=== PATIENT | male | born 1975 | race Caucasian/White ===

== ENCOUNTER 2020-08-21 16:30 | Inpatient (IN) | payer OTHER ==
[2020-08-21] MEDS ORDERED: ACETAMINOPHEN 325 MG TABLET (FP) PO PRN ×2 (22:05)
[2020-08-21] MEDS ORDERED: MENTHOL/PHENOL 1 EACH UD MM PRN (22:05)
[2020-08-21] MEDS ORDERED: IBUPROFEN 400 MG TABLET (FP) PO PRN (22:05)
[2020-08-21] MEDS ORDERED: BISMUTH SUBSALICYLATE 524 MG/30 ML UD PO PRN (22:05)
[2020-08-21] MEDS ORDERED: MAG HYDROX/AL HYDROX/SIMETH 30 ML UNIT-DOSE CUP PO PRN (22:05)
[2020-08-21] MEDS ORDERED: METHOCARBAMOL 500 MG TABLET PO PRN (22:05)
[2020-08-21] MEDS ORDERED: NICOTINE POLACRILEX 2 MG GUM BUC PRN (22:05)
[2020-08-21] MEDS ORDERED: MAGNESIUM CITRATE 300 ML BOTTLE PO PRN (22:05)
[2020-08-21] MEDS ORDERED: MAGNESIUM HYDROX 2400MG/30ML ORAL SUSPENSION 30 ML CUP PO PRN (22:05)
[2020-08-21] MEDS ORDERED: LORazepam 1 MG TABLET PO PRN (22:05)
[2020-08-21] MEDS ORDERED: ONDANSETRON *ODT* 4 MG TABLET SL PRN (22:05)
--- NOTE | 2020-08-21 22:05 | BHS.RME ---
Substance Use & Tx History - Substance Use History Alcohol Substance amount: 6 beers Frequency of use: Daily Substance route: Oral Date of Last Use: 08/21/20 - Last Treatment Date of last treatment: 10 months ago Where was last treatment: Detox ([facility]) Physical/Psych/Mental Status - Behavior General Behavior: Increased activity (restlessness, agitation) Other Behaviors: Posturing - Cooperativeness Cooperativeness: Cooperative - Thinking Thought Processes: Tight - Physical Health Problems Is patient presently having any pain?: No Does patient presently have any injuries (include location): No Does patient currently have a fever: No Is patient : No CIWA Nausea/Vomitin-No Nausea/No Vomiting Muscle Tremors: 3 Anxiety: 3 Agitation: 2 Paroxysmal Sweats: 2 Orientation: 0-Oriented Tacttile Disturbances: 0-None Auditory Disturbances: 0-None Visual Disturbances: 0-None Headache: 2-Mild CIWA-Ar Total Score: 12
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
[2020-08-21 22:31] VITALS: BMI 35.2
--- OUTSIDE RECORDS SUMMARY | 2020-08-21 23:53 | XMS ---
:1975 Author Organization [facility] Support Name Relationship Address Phone UE Unavailable Unavailable Unavailable BERTRAND [employer]ILSON MOTHER [address] [place] [address] Re-disclosure Warning The records that you are about to access may contain information from federally- assisted alcohol or drug abuse programs. If such information is present, then the following federally mandated warning applies: This information has been disclosed to you from records protected by federal confidentiality rules (42 CFR part 2). The federal rules prohibit you from making any further disclosure of this information unless further disclosure is expressly permitted by the written consent of the person to whom it pertains or as otherwise permitted by 42 CFR part 2. A general authorization for the release of medical or other information is NOT sufficient for this purpose. The Federal rules restrict any use of the information to criminally investigate or prosecute any alcohol or drug abuse patient.The records that you are about to access may contain highly sensitive health information, the redisclosure of which is protected by Article 27-F of the [facility] Public Health law. If you continue you may haveaccess to information: Regarding HIV / AIDS; Provided by facilities licensed or operated by the [facility] Office of Mental Health; or Provided by the [facility] Office for People With Developmental Disabilities. If such information is present, then the following [facility] mandated warning applies: This information has been disclosed to you from confidential records which are protected by state law. State law prohibits you from making any further disclosure of this information without the specific written consent of the person to whom it pertains, or as otherwise permitted by law. Any unauthorized further disclosure in violation of state law may result in a fine or usp sentence or both. A general authorization for the release of medical or other information is NOT sufficient authorization for further disclosure. Allergies and Adverse Reactions Type Description Substance Reaction Status Data Source(s ) Drug allergy Shellfish Drug allergy anaphylaxis Active eCW3 ([facility]) Drug allergy Shellfish Drug allergy anaphylaxis Active eCW3 ([facility]) Drug allergy Shellfish Drug allergy anaphylaxis Active eCW3 ([facility]) Drug allergy Shellfish Drug allergy anaphylaxis Active eCW3 ([facility]) Drug allergy Shellfish Drug allergy anaphylaxis Active eCW3 ([facility]) Drug allergy Shellfish Drug allergy anaphylaxis Active eCW3 ([facility]) Encounters Encounter Providers Location Date Indications Data Source(s ) Outpatient [facility] 07/29/2019 eCW3 ([facility] 12:00:00 AM [facility] - Care) 07/29/2019 12:00:00 AM EDT Outpatient [facility] 07/15/2019 eCW3 ([facility] A28 12:00:00 AM [facility] - Care) 07/15/2019 12:00:00 AM EDT Outpatient [facility] 06/18/2019 eCW3 ([facility] A28 12:00:00 AM [facility] - Care) 06/18/2019 12:00:00 AM EDT Outpatient [facility] 06/01/2019 eCW3 ([facility] A28 12:00:00 AM [facility] - Care) 06/01/2019 12:00:00 AM EDT (SDA-PC/FU) [facility] 05/01/2019 eCW3 ([facility] A28 12:00:00 AM [facility] In EDT - Care) 05/01/2019 12:00:00 AM EDT Outpatient [facility] 04/30/2019 eCW3 ([facility] A28 12:00:00 AM [facility] - [facility]) 04/30/2019 12:00:00 AM EDT Immunizations Vaccine Date Status Description Data Source(s) meningococcal MCV4P [facility] Pneumococcal conjugate PCV 04/30/2019 completed e CW3 ([facility] [place] 13 03:37:00 PM EDT Health Care) Medications Medication Brand Start Product Dose Route Administrative Pharmacy St atus Indications Reaction Description Data Name Date Form Instructions Instructions Source(s) Buprenorphi Suboxo 05/04/ active Suboxon e 4-1 eCW3 ne 4 MG / ne 4-1 2020 MG ([facility] Naloxone 1 MG 12:00: [place] MG Oral 00 AM Health [facility] EDT Care) [Suboxone] Suboxone 4-1 MG Buprenorphi Suboxo // active Suboxon e 4-1 eCW3 ne 4 MG / ne 4-1 2020 MG ([facility] Naloxone 1 MG 12:00: [place] MG Oral 00 AM Health [facility] EDT Care) [Suboxone] Suboxone 4-1 MG Buprenorphi Suboxo // active Suboxon e 4-1 eCW3 ne 4 MG / ne 4-1 2020 MG ([facility] Naloxone 1 MG 12:00: [place] MG Oral 00 AM Health [facility] EDT Care) [Suboxone] Suboxone 4-1 MG gabapentin Gabape .0 active Gabapent in eCW3 100 MG Oral ntin 2018 {caps 100 MG ([place] [place] Capsule 100 MG 12:00: ule} [place] Gabapentin 00 AM Health 100 MG EST Care) gabapentin Gabape .0 active Gabapent in eCW3 100 MG Oral ntin 2018 {caps 100 MG ([place] Capsule 100 MG 12:00: ule} [place] Gabapentin 00 AM Health 100 MG EST Care) Blood Blood 11/02/ active Blood eCW3 Pressure - Pressu 2019 Pressure - ( [facility] re - 12:00: [place] 00 AM Health EST Care) gabapentin Gabape .0 active Gabapent in eCW3 100 MG Oral ntin 2018 {caps 100 MG ([place] Capsule 100 MG 12:00: ule} [place] Gabapentin 00 AM Health 100 MG EST Care) Blood Blood 11/02/ active Blood eCW3 Pressure - Pressu 2019 Pressure - ( [facility] re - 12:00: [place] 00 AM Health EST Care) Blood Blood 11/02/ active Blood eCW3 Pressure - Pressu 2019 Pressure - ( [facility] re - 12:00: [place] 00 AM Health EST Care) Blood Blood 11/02/ active Blood eCW3 Pressure - Pressu 2019 Pressure - ( [facility] re - 12:00: [place] 00 AM Health EST Care) gabapentin Gabape .0 active Gabapent in eCW3 100 MG Oral ntin 2018 {caps 100 MG ([place] Capsule 100 MG 12:00: ule} [place] Gabapentin 00 AM Health 100 MG EST Care) gabapentin Gabape .0 active Gabapent in eCW3 100 MG Oral ntin 2018 {caps 100 MG ([place] Capsule 100 MG 12:00: ule} [place] Gabapentin 00 AM Health 100 MG EST Care) Blood Blood 11/02/ active Blood eCW3 Pressure - Pressu 2018 Pressure - ( [facility] re - 12:00: [place] 00 AM Health EST Care) Blood Blood 11/02/ active Blood eCW3 Pressure - Pressu 2019 Pressure - ( [facility] re - 12:00: [place] 00 AM Health EST Care) gabapentin Gabape .0 active Gabapent in eCW3 100 MG Oral ntin 2018 {caps 100 MG ([place] Capsule 100 MG 12:00: ule} [place] Gabapentin 00 AM Health 100 MG EST Care) Fluticasone Flutic .0 active Flutica sone eCW3 Propionate asone 2018 {spra Propionate ( [facility] 50 MCG/ACT Propio 12:00: y_in_ 50 MCG/AC T [place] 00 AM each_ Health 50 EDT nostr Care) MCG/AC il} T Loratadine Clarit .0 active Claritin 10 eCW3 10 MG Oral in 2018 {caps MG ([facility] Capsule MG 12:00: ule} [place] [Claritin] 00 AM Health Claritin 10 EDT Care) MG Fluticasone Flutic .0 active Flutica sone eCW3 Propionate asone 2018 {spra Propionate ( [facility] 50 MCG/ACT Propio 12:00: y_in_ 50 MCG/AC T [place] 00 AM each_ Health 50 EDT nostr Care) MCG/AC il} T Loratadine Clarit .0 active Claritin 10 eCW3 10 MG Oral in 2018 {caps MG ([facility] Capsule MG 12:00: ule} [place] [Claritin] 00 AM Health Claritin 10 EDT Care) MG Fluticasone Flutic .0 active Flutica sone eCW3 Propionate asone 2018 {spra Propionate ( [facility] 50 MCG/ACT Propio 12:00: y_in_ 50 MCG/AC T [place] 00 AM each_ Health 50 EDT nostr Care) MCG/AC il} T Loratadine Clarit .0 active Claritin 10 eCW3 10 MG Oral in 2018 {caps MG ([facility] Capsule MG 12:00: ule} [place] [Claritin] 00 AM Health [facility] 10 EDT Care) MG Loratadine Clarit .0 active Claritin 10 eCW3 10 MG Oral in 2018 {caps MG ([facility] Capsule MG 12:00: ule} [place] [Claritin] 00 AM Health [facility] 10 EDT Care) MG Fluticasone Flutic .0 active Flutica sone eCW3 Propionate asone 2018 {spra Propionate ( [facility] 50 MCG/ACT Propio 12:00: y_in_ 50 MCG/AC T [place] 00 AM each_ Health 50 EDT nostr Care) MCG/AC il} T Fluticasone Flutic .0 active Flutica sone eCW3 Propionate asone 2018 {spra Propionate ( [facility] 50 MCG/ACT Propio 12:00: y_in_ 50 MCG/AC T [place] 00 AM each_ Health 50 EDT nostr Care) MCG/AC il} T Loratadine Clarit .0 active Claritin 10 eCW3 10 MG Oral in 2018 {caps MG ([facility] Capsule MG 12:00: ule} [place] [Claritin] 00 [facility]) MG Fluticasone Flutic .0 active Flutica sone eCW3 Propionate asone 2018 {spra Propionate ( [place] 50 MCG/ACT Propio 12:00: y_in_ 50 MCG/AC T [place] 00 AM each_ Health 50 EDT nostr Care) MCG/AC il} T Loratadine Clarit .0 active Claritin 10 eCW3 10 MG Oral in 2018 {caps MG ([place] Capsule MG 12:00: ule} [place] [Claritin] 00 AM Health Claritin 10 EDT Care) MG Acetaminoph Oxycod .0 suspend Oxycod one-Ac eCW3 en 325 MG / one-Ac 2018 {tabl ed etaminophe n ([facility] Oxycodone etamin 12:00: et_as 5-325 MG R i[facility] Hydrochlori ophen 00 AM _need Healt h de 5 MG 5-325 EST ed} Care) Oral Tablet MG Oxycodone-A cetaminophe n 5-325 MG Chlordiazep Chlord .0 suspend Chlord iazepo eCW3 oxide iazepo 2018 {caps ed xide HCl 25 ([facility] Hydrochlori xide 12:00: ule} MG [place] de 25 MG HCl 25 00 AM Health Oral MG EST Care) Capsule Chlordiazep oxide HCl 25 MG Chlordiazep Chlord .0 suspend Chlord iazepo eCW3 oxide iazepo 2018 {caps ed xide HCl 25 ([facility] Hydrochlori xide 12:00: ule} MG [place] de 25 MG HCl 25 00 AM Health Oral MG EST Care) Capsule Chlordiazep oxide HCl 25 MG Acetaminoph Oxycod .0 suspend Oxycod one-Ac eCW3 en 325 MG / one-Ac 2018 {tabl ed etaminophe n ([facility] Oxycodone etamin 12:00: et_as 5-325 MG R iver Hydrochlori ophen 00 AM _need Healt h de 5 MG 5-325 EST ed} Care) Oral Tablet MG Oxycodone-A cetaminophe n 5-325 MG Acetaminoph Oxycod .0 suspend Oxycod one-Ac eCW3 en 325 MG / one-Ac 2018 {tabl ed etaminophe n ([facility] Oxycodone etamin 12:00: et_as 5-325 MG R iver Hydrochlori ophen 00 AM _need Healt h de 5 MG 5-325 EST ed} Care) Oral Tablet MG Oxycodone-A cetaminophe n 5-325 MG Chlordiazep Chlord .0 suspend Chlord iazepo eCW3 oxide iazepo 2018 {caps ed xide HCl 25 ([facility] Hydrochlori xide 12:00: ule} MG [place] de 25 MG HCl 25 00 AM Health Oral MG EST Care) Capsule Chlordiazep oxide HCl 25 MG Chlordiazep Chlord .0 suspend Chlord iazepo eCW3 oxide iazepo 2019 {caps ed xide HCl 25 ([facility] Hydrochlori xide 12:00: ule} MG [place] de 25 MG HCl 25 00 AM Health Oral MG EST Care) Capsule Chlordiazep oxide HCl 25 MG Chlordiazep Chlord .0 suspend Chlord iazepo eCW3 oxide iazepo 2018 {caps ed xide HCl 25 ([facility] Hydrochlori xide 12:00: ule} MG [place] de 25 MG HCl 25 00 AM Health Oral MG EST Care) Capsule Chlordiazep oxide HCl 25 MG Chlordiazep Chlord .0 suspend Chlord iazepo eCW3 oxide iazepo 2018 {caps ed xide HCl 25 ([facility] Hydrochlori xide 12:00: ule} MG [place] de 25 MG HCl 25 00 AM Health Oral MG EST Care) Capsule Chlordiazep oxide HCl 25 MG Acetaminoph Oxycod .0 suspend Oxycod one-Ac eCW3 en 325 MG / one-Ac 2018 {tabl ed etaminophe n ([facility] Oxycodone etamin 12:00: et_as 5-325 MG R iver Hydrochlori ophen 00 AM _need Healt h de 5 MG 5-325 EST ed} Care) Oral Tablet MG Oxycodone-A cetaminophe n 5-325 MG Acetaminoph Oxycod .0 suspend Oxycod one-Ac eCW3 en 325 MG one-Ac 2018 {tabl ed etaminophe n ([facility] Oxycodone etamin 12:00: et_as 5-325 MG R iver Hydrochlori ophen 00 AM _need Healt h de 5 MG 5-325 EST ed} Care) Oral Tablet MG Oxycodone-A cetaminophe n 5-325 MG Acetaminoph Oxycod .0 suspend Oxycod one-Ac eCW3 en 325 MG / one-Ac 2018 {tabl ed etaminophe n ([facility] Oxycodone etamin 12:00: et_as 5-325 MG R iver Hydrochlori ophen 00 AM _need Healt h de 5 MG 5-325 EST ed} Care) Oral Tablet MG Oxycodone-A cetaminophe n 5-325 MG Omeprazole Omepra active Omeprazole eCW3 20 MG zole 20 mg ([facility] Delayed 20 mg [facility] Release Health Oral Care) Capsule Omeprazole 20 mg Omeprazole Omepra active Omeprazole eCW3 20 MG zole 20 mg ([facility] Delayed 20 mg [facility] Release Health Oral Care) Capsule Omeprazole 20 mg 24 HR BuPROP 1.0 active BuPROPion eCW3 Bupropion ion {tabl HCl ER (XL) ([facility] ud[facility] Hydrochlori HCl ER et_in 150 MG Pina er de 150 MG (XL) _the_ Health Extended 150 MG morni Care) Release ng} Oral Tablet BuPROPion HCl ER (XL) 150 MG 24 HR BuPROP 1.0 active BuPROPion eCW3 Bupropion ion {tabl HCl ER (XL) ([facility] ud[facility] Hydrochlori HCl ER et_in 150 MG Pina er de 150 MG (XL) _the_ Health Extended 150 MG morni Care) Release ng} Oral Tablet BuPROPion HCl ER (XL) 150 MG Zolpidem Ambien 1.0 suspend Ambien 10 m g eCW3 tartrate 10 10 mg {tabl ed ([place] MG Oral et_at [place] Tablet _bedt Health [Ambien] edvin} Care) Ambien 10 mg Aspirin 81 Aspiri 1.0 active Aspirin 81 eCW3 MG Delayed n 81 {tabl mg ([facility] Release mg et} [facility] Oral Tablet Health Aspirin 81 Care) mg aripiprazol Aripip suspend Aripipra zole eCW3 e 10 MG razole ed 10 MG ([facility] Oral Tablet 10 MG [facility] Aripiprazol Health e 10 MG Care) Genvoya Genvoy active Genvoya eCW3 150-150-200 a [phone] ([facility] -10 MG 150-15 10 MG [place] 0-200- Health 10 MG Care) Ergocalcife Ergoca 1.0 suspend Ergocalc ifer eCW3 rol 79654 lcifer {[place] [address] (Hu dson UNT Oral ol ule} UNIT [place] Capsule 35819 Health Ergocalcife UNIT Care) rol 90207 UNIT Clonazepam Clonaz 1.0 active Clonazepam 1 eCW3 1 MG Oral epam 1 {tabl MG ([facility] Tablet MG et} [facility]) Ergocalcife Ergoca 1.0 suspend Ergocalc ifer eCW3 rol 40782 lcifer {[place] [address] (Hu dson UNT Oral ol ule} UNIT [place] Capsule 37711 Health Ergocalcife UNIT Care) rol 80583 UNIT Multivitami Multiv active Multivita min eCW3 n Men - itamin Men - ([facility]) 24 HR BuPROP 1.0 active BuPROPion eCW3 Bupropion ion {tabl HCl ER (XL) ([facility] ud[facility] Hydrochlori HCl ER et_in 150 MG Pina er de 150 MG (XL) _the_ Health Extended 150 MG morni Care) Release ng} Oral Tablet BuPROPion HCl ER (XL) 150 MG Tab-A-Yanelis/ Tab-A- active Tab-A-Vit e/I eCW3 Iron - Yanelis/I pilar - ([facility]) Aspirin 81 Aspiri 1.0 active Aspirin 81 eCW3 MG Delayed n 81 {tabl mg ([facility] Release mg et} [place] Oral Tablet Health Aspirin 81 Care) mg Multivitami Multiv active Multivita min eCW3 n Men - itamin Men - ([facility]) Suboxone UNK suspend Suboxone 8-2 eCW3 8-2 MG ed MG ([facility]) Sertraline Sertra 1.0 active Sertraline eCW3 100 MG Oral line {tabl HCl 100 MG ( [facility] Tablet HCl et} [place] Sertraline 100 MG Health HCl 100 MG Care) Multivitami Multiv active Multivita min eCW3 n Men - itamin Men - ([facility]) Clonazepam Clonaz 1.0 active Clonazepam 1 eCW3 1 MG Oral epam 1 {tabl MG ([facility] Tablet MG et} [facility]) Genvoya Genvoy active Genvoya eCW3 150-150-200 a [phone] ([facility] -10 MG 150-15 10 MG [place] 0-200- Health 10 MG Care) Multivitami Multiv active Multivita min eCW3 n Men - itamin Men - ([facility]) Aspirin 81 Aspiri 1.0 active Aspirin 81 eCW3 MG Delayed n 81 {tabl mg ([facility] Release mg et} [place] Oral Tablet Health Aspirin 81 Care) mg Tab-A-Yanelis/ Tab-A- active Tab-A-Vit e/I eCW3 Iron - Yanelis/I pilar - ([facility] pilar - [facility]) Buprenorphi Suboxo active Suboxone 4-1 eCW3 ne 4 MG / ne 4-1 MG ([facility] Naloxone 1 MG [facility] MG Oral Health Strip Care) [Suboxone] Suboxone 4-1 MG aripiprazol Aripip suspend Aripipra zole eCW3 e 10 MG razole ed 10 MG ([facility] Oral Tablet 10 MG [facility] Aripiprazol Health e 10 MG Care) Hydroxyzine HydrOX 1.0 suspend HydrOXYz ine eCW3 Pamoate 50 Yzine {caps ed Pamoate 50 ( [facility] MG Oral Pamoat ule_a mg [place] Capsule e 50 s_nee Health HydrOXYzine mg ded} Care) Pamoate 50 mg Hydrochloro Hydroc 1.0 active Hydrochlo rot eCW3 thiazide 25 hlorot {tabl hiazide 25 ([facility] MG Oral hiazid et_in MG [place] Tablet e 25 _the_ Health MG morni Care) ng} Hydrochloro Hydroc 1.0 active Hydrochlo rot eCW3 thiazide 25 hlorot {tabl hiazide 25 ([facility] MG Oral hiazid et_in MG [place] Tablet e 25 _the_ Health MG morni Care) ng} 200 ACTUAT Ventol 1.0 active Ventolin H FA eCW3 Albuterol in HFA {puff 90 MCG/ACT ( [facility] 0.09 90 _as_n [place] MG/ACTUAT MCG/AC eeded Health Metered T } Care) Dose Inhaler [Ventolin] Ventolin HFA 90 MCG/ACT Sertraline Sertra 1.0 active Sertraline eCW3 100 MG Oral line {tabl HCl 100 MG ( [facility] Tablet HCl et} [place] Sertraline 100 MG Health HCl 100 MG Care) Ergocalcife Ergoca 1.0 suspend Ergocalc ifer eCW3 rol 18548 lcifer {[place] [address] (Hu dson UNT Oral ol ule} UNIT [place] Capsule 04873 Health Ergocalcife UNIT Care) rol 54010 UNIT Clonidine Clonid 1.0 suspend Clonidine eCW3 Hydrochlori ine {tabl ed HCl 0.1 MG ( [facility] de 0.1 MG HCl et_at [place] Oral Tablet 0.1 MG _bedt Healt h Clonidine edvin} Care) HCl 0.1 MG Sertraline Sertra 1.0 active Sertraline eCW3 100 MG Oral line {tabl HCl 100 MG ( [facility] Tablet HCl et} [place] Sertraline 100 MG Health HCl 100 MG Care) Aspirin 81 Aspiri 1.0 active Aspirin 81 eCW3 MG Delayed n 81 {tabl mg ([facility] Release mg et} [place] Oral Tablet Health Aspirin 81 Care) mg Zolpidem Ambien 1.0 suspend Ambien 10 m g eCW3 tartrate 10 10 mg {tabl ed ([place] MG Oral et_at [place] Tablet _bedt Health [Ambien] edvin} Care) Ambien 10 mg Omeprazole Omepra active Omeprazole eCW3 20 MG zole 20 mg ([facility] Delayed 20 mg [place] Release Health Oral Care) Capsule Omeprazole 20 mg Hydroxyzine HydrOX 1.0 suspend HydrOXYz ine eCW3 Pamoate 50 Yzine {caps ed Pamoate 50 ( [facility] MG Oral Pamoat ule_a mg [place] Capsule e 50 s_nee Health HydrOXYzine mg ded} Care) Pamoate 50 mg aripiprazol Aripip suspend Aripipra zole eCW3 e 10 MG razole ed 10 MG ([facility] Oral Tablet 10 MG [facility] Aripiprazol Health e 10 MG Care) Genvoya Genvoy active Genvoya eCW3 150-150-200 a [phone] ([facility] -10 MG 150-15 10 MG [place] 0-200- Health 10 MG Care) Hydroxyzine HydrOX 1.0 suspend HydrOXYz ine eCW3 Pamoate 50 Yzine {caps ed Pamoate 50 ( [facility] MG Oral Pamoat ule_a mg [place] Capsule e 50 s_nee Health HydrOXYzine mg ded} Care) Pamoate 50 mg Tab-A-Yanelis/ Tab-A- active Tab-A-Vit e/I eCW3 Iron - Yanelis/I pilar - ([facility] pilar - [facility]) Hydrochloro Hydroc 1.0 active Hydrochlo rot eCW3 thiazide 25 hlorot {tabl hiazide 25 ([facility] MG Oral hiazid et_in MG [place] Tablet e 25 _the_ Health MG morni Care) ng} Fluoxetine Prozac 1.0 active Prozac 40 MG eCW3 40 MG Oral 40 MG {caps ([facility] Capsule ule_i [place] [Prozac] n_the Health Prozac 40 _morn Care) MG ing} Ergocalcife Ergoca 1.0 suspend Ergocalc ifer eCW3 rol 76104 lcifer {[place] [address] (Hu dson UNT Oral ol ule} UNIT [place] Capsule 70671 Health Ergocalcife UNIT Care) rol 79573 UNIT Omeprazole Omepra active Omeprazole eCW3 20 MG zole 20 mg ([facility] Delayed 20 mg [place] Release Health Oral Care) Capsule Omeprazole 20 mg Clonazepam Clonaz 1.0 active Clonazepam 1 eCW3 1 MG Oral epam 1 {tabl MG ([facility] Tablet MG et} [facility] Care) aripiprazol Aripip suspend Aripipra zole eCW3 e 10 MG razole ed 10 MG ([facility] Oral Tablet 10 MG [place] Aripiprazol Health e 10 MG Care) Sertraline Sertra 1.0 active Sertraline eCW3 100 MG Oral line {tabl HCl 100 MG ( [place] Tablet HCl et} [place] Sertraline 100 MG Health HCl 100 MG Care) Simvastatin Simvas 1.0 active Simvastat in eCW3 20 MG Oral tatin {tabl 20 MG ([place] Tablet 20 MG et_in [place] _[facility]_ Health eveni Care) ng} Tab-A-Yanelis/ Tab-A- active Tab-A-Vit e/I eCW3 Iron - Yanelis/I pilar - ([place] pilar - [facility]) Simvastatin Simvas 1.0 active Simvastat in eCW3 20 MG Oral tatin {tabl [facility] [place] [facility]_ Health eveni Care) ng} Suboxone UNK suspend Suboxone 8-2 eCW3 8-2 MG ed MG ([facility] Care) Buprenorphi Suboxo active Suboxone 4-1 eCW3 ne 4 MG / ne 4-1 MG ([facility] Naloxone 1 MG [facility] MG Oral Health Strip Care) [Suboxone] Suboxone 4-1 MG Multivitami Multiv active Multivita min eCW3 n Men - itamin Men - ([facility]) Simvastatin Simvas 1.0 active Simvastat in eCW3 20 MG Oral tatin {tabl 20 MG [facility] et_in [place] _[facility]_ [facility] eveni Care) ng} 200 ACTUAT Ventol 1.0 active Ventolin H FA eCW3 Albuterol in HFA {puff 90 MCG/ACT ( [facility] 0.09 90 _as_n [place] MG/ACTUAT MCG/AC eeded Health Metered T } Care) Dose Inhaler [Ventolin] Ventolin HFA 90 MCG/ACT Clonidine Clonid 1.0 suspend Clonidine eCW3 Hydrochlori ine {tabl ed HCl 0.1 MG ( [place] de 0.1 MG HCl et_at [place] Oral Tablet 0.1 MG _bedt Healt h Clonidine edvin} Care) HCl 0.1 MG Tab-A-Yanelis/ Tab-A- active Tab-A-Vit e/I eCW3 Iron - Yanelis/I pilar - ([facility]) 200 ACTUAT Ventol 1.0 active Ventolin H FA eCW3 Albuterol in HFA {puff 90 MCG/ACT ( [facility] 0.09 90 _as_n [place] MG/ACTUAT MCG/AC eeded Health Metered T } Care) Dose Inhaler [Ventolin] Ventolin HFA 90 MCG/ACT 200 ACTUAT Ventol 1.0 active Ventolin H FA eCW3 Albuterol in HFA {puff 90 MCG/ACT ( [facility] 0.09 90 _as_n [place] MG/ACTUAT MCG/AC eeded Health Metered T } Care) Dose Inhaler [Ventolin] Ventolin HFA 90 MCG/ACT Fluoxetine Prozac 1.0 active Prozac 40 MG eCW3 40 MG Oral 40 MG {caps ([place] Capsule ule_i [place] [Prozac] n_[facility] Prozac 40 _morn Care) MG ing} Genvoya Genvoy active Genvoya eCW3 150-150-200 a [phone] ([facility]rez -10 MG 150-15 10 MG [place] 0-200- Health 10 MG Care) Clonazepam Clonaz 1.0 active Clonazepam 1 eCW3 1 MG Oral epam 1 {tabl MG ([facility] Tablet MG et} [facility] Care) 24 HR BuPROP 1.0 active BuPROPion eCW3 Bupropion ion {tabl HCl ER (XL) (H udson Hydrochlori HCl ER et_in 150 MG Pina er de 150 MG (XL) _the_ Health Extended 150 MG morni Care) Release ng} Oral Tablet BuPROPion HCl ER (XL) 150 MG 24 HR BuPROP 1.0 active BuPROPion eCW3 Bupropion ion {tabl HCl ER (XL) (H udson Hydrochlori HCl ER et_in 150 MG Pina er de 150 MG (XL) _the_ Health Extended 150 MG morni Care) Release ng} Oral Tablet BuPROPion HCl ER (XL) 150 MG Clonidine Clonid 1.0 suspend Clonidine eCW3 Hydrochlori ine {tabl ed HCl 0.1 MG ( [place] de 0.1 MG HCl et_at [place] Oral Tablet 0.1 MG _bedt Healt h Clonidine edvin} Care) HCl 0.1 MG Fluoxetine Prozac 1.0 active Prozac 40 MG eCW3 40 MG Oral 40 MG {caps ([facility] Capsule ule_i [place] [Prozac] n_the Health Prozac 40 _morn Care) MG ing} aripiprazol Aripip suspend Aripipra zole eCW3 e 10 MG razole ed 10 MG ([facility] Oral Tablet 10 MG [place] Aripiprazol Health e 10 MG Care) Hydrochloro Hydroc 1.0 active Hydrochlo rot eCW3 thiazide 25 hlorot {tabl hiazide 25 ([facility]rez MG Oral hiazid et_in MG [place] Tablet e 25 _the_ Health MG morni Care) ng} 200 ACTUAT Ventol 1.0 active Ventolin H FA eCW3 Albuterol in HFA {puff 90 MCG/ACT ( [facility] 0.09 90 _as_n [place] MG/ACTUAT MCG/AC eeded Health Metered T } Care) Dose Inhaler [Ventolin] Ventolin HFA 90 MCG/ACT Buprenorphi Suboxo active Suboxone 4-1 eCW3 ne 4 MG / ne 4-1 MG ([facility]rez Naloxone 1 MG [facility] MG Oral Health Strip Care) [Suboxone] Suboxone 4-1 MG Buprenorphi Suboxo active Suboxone 4-1 eCW3 ne 4 MG / ne 4-1 MG ([facility] Naloxone 1 MG [place] MG Oral Health Strip Care) [Suboxone] Suboxone 4-1 MG Aspirin 81 Aspiri 1.0 active Aspirin 81 eCW3 MG Delayed n 81 {tabl mg ([facility]rez Release mg et} [place] Oral Tablet Health Aspirin 81 Care) mg Zolpidem Ambien 1.0 suspend Ambien 10 m g eCW3 tartrate 10 10 mg {tabl ed ([place] n MG Oral et_at [place] Tablet _bedt Health [Ambien] edvin} Care) Ambien 10 mg aripiprazol Aripip suspend Aripipra zole eCW3 e 10 MG razole ed 10 MG ([facility]rez Oral Tablet 10 MG [facility] Aripiprazol Health e 10 MG Care) Hydroxyzine HydrOX 1.0 suspend HydrOXYz ine eCW3 Pamoate 50 Yzine {caps ed Pamoate 50 ( [facility]rez MG Oral Pamoat ule_a mg [place] Capsule e 50 s_nee Health HydrOXYzine mg ded} Care) Pamoate 50 mg Fluoxetine Prozac 1.0 active Prozac 40 MG eCW3 40 MG Oral 40 MG {caps ([facility] Capsule ule_i [place] [Prozac] n_the Health Prozac 40 _morn Care) MG ing} Ergocalcife Ergoca 1.0 suspend Ergocalc ifer eCW3 rol 87239 lcifer {[place] [address] (Hu dson UNT Oral ol ule} UNIT [place] Capsule 52134 Health Ergocalcife UNIT Care) rol 20028 UNIT Aspirin 81 Aspiri 1.0 active Aspirin 81 eCW3 MG Delayed n 81 {tabl mg ([facility] Release mg et} [facility] Oral [facility] Aspirin 81 Care) mg Omeprazole Omepra active Omeprazole eCW3 20 MG zole 20 mg (Ramírez Delayed 20 mg [facility] Oral Care) Capsule Omeprazole 20 mg Suboxone UNK suspend Suboxone 8-2 eCW3 8-2 MG ed MG ([facility]) Zolpidem Ambien 1.0 suspend Ambien 10 m g eCW3 tartrate 10 10 mg {tabl ed ([place] MG Oral et_at [facility] Tablet _bedt Health [Ambien] edvin} Care) Ambien 10 mg Zolpidem Ambien 1.0 suspend Ambien 10 m g eCW3 tartrate 10 10 mg {tabl ed ([place] MG Oral et_at [facility] Tablet _bedt Health [Ambien] edvin} Care) Ambien 10 mg Suboxone UNK suspend Suboxone 8-2 eCW3 8-2 MG ed MG ([facility]) Fluoxetine Prozac 1.0 active Prozac 40 MG eCW3 40 MG Oral 40 MG {caps (Ramírez Capsule ule_i [facility] [Prozac] n_the Health Prozac 40 _morn Care) MG ing} Ergocalcife Ergoca 1.0 suspend Ergocalc ifer eCW3 rol [id number] lcifer {[place] [address] (Hu dson UNT Oral ol ule} UNIT [facility] Capsule [id number] Health Ergocalcife UNIT Care) rol [id number] UNIT Simvastatin Simvas 1.0 active Simvastat in eCW3 20 MG Oral tatin {tabl 20 MG ([place] Tablet 20 MG et_in [facility] _the_ Health eveni Care) ng} Buprenorphi Suboxo active Suboxone 4-1 eCW3 ne 4 MG / ne 4-1 MG (Ramírez Naloxone 1 MG [facility] MG Oral Health Strip Care) [Suboxone] Suboxone 4-1 MG Zolpidem Ambien 1.0 suspend Ambien 10 m g eCW3 tartrate 10 10 mg {tabl ed ([place] MG Oral et_at [facility] Tablet _bedt Health [Ambien] edvin} Care) Ambien 10 mg Clonazepam Clonaz 1.0 active Clonazepam 1 eCW3 1 MG Oral epam 1 {tabl MG (Ramírez Tablet MG et} [facility] Care) Tab-A-Yanelis/ Tab-A- active Tab-A-Vit e/I eCW3 Iron - Yanelis/I pilar - ([place] pilar [facility]) Clonidine Clonid 1.0 suspend Clonidine eCW3 Hydrochlori ine {tabl ed HCl 0.1 MG ( Ramírez de 0.1 MG HCl et_at [facility] Oral Tablet 0.1 MG _bedt Healt h Clonidine edvin} Care) HCl 0.1 MG Suboxone UNK suspend Suboxone 8-2 eCW3 8-2 MG ed MG ([facility] Health Care) Clonidine Clonid 1.0 suspend Clonidine eCW3 Hydrochlori ine {tabl ed HCl 0.1 MG ( Ramírez de 0.1 MG HCl et_at [facility] Oral Tablet 0.1 MG _bedt Healt h Clonidine edvin} Care) HCl 0.1 MG Sertraline Sertra 1.0 active Sertraline eCW3 100 MG Oral line {tabl HCl 100 MG ( Ramírez Tablet HCl et} [facility] Sertraline 100 MG Health HCl 100 MG Care) Hydroxyzine HydrOX 1.0 suspend HydrOXYz ine eCW3 Pamoate 50 Yzine {caps ed Pamoate 50 ( Ramírez MG Oral Pamoat ule_a mg [facility] Capsule e 50 s_nee Health HydrOXYzine mg ded} Care) Pamoate 50 mg Hydroxyzine HydrOX 1.0 suspend HydrOXYz ine eCW3 Pamoate 50 Yzine {caps ed Pamoate 50 ( Ramírez MG Oral Pamoat ule_a mg [facility] Capsule e 50 s_nee Health HydrOXYzine mg ded} Care) Pamoate 50 mg Genvoya Genvoy active Genvoya eCW3 150-150-200 a [id number]- (Ramírez -10 MG 150-15 10 MG [facility] 0-200- Health 10 MG Care) Hydrochloro Hydroc 1.0 active Hydrochlo rot eCW3 thiazide 25 hlorot {tabl hiazide 25 (Ramírez MG Oral hiazid et_in MG [facility] Tablet e 25 _the_ Health MG morni Care) ng} Omeprazole Omepra active Omeprazole eCW3 20 MG zole 20 mg (Ramírez Delayed 20 mg [facility] Oral Care) Capsule Omeprazole 20 mg Buprenorphi Suboxo active Suboxone 4-1 eCW3 ne 4 MG / ne 4-1 MG (Ramírez Naloxone 1 MG [facility] MG Oral Health Strip Care) [Suboxone] Suboxone 4-1 MG Multivitami Multiv active Multivita min eCW3 n Men - itamin Men - ([facility] Care) 200 ACTUAT Ventol 1.0 active Ventolin H FA eCW3 Albuterol in HFA {puff 90 MCG/ACT ( Ramírez 0.09 90 _as_n [facility] MG/ACTUAT [facility] } Care) Dose Inhaler [Ventolin] Ventolin HFA 90 MCG/ACT 24 HR BuPROP 1.0 active BuPROPion eCW3 Bupropion ion {tabl HCl ER (XL) (H udson Hydrochlori HCl ER et_in 150 MG Pina er de 150 MG (XL) _the_ Health Extended 150 MG morni Care) Release ng} Oral Tablet BuPROPion HCl ER (XL) 150 MG Hydrochloro Hydroc 1.0 active Hydrochlo rot eCW3 thiazide 25 hlorot {tabl hiazide 25 (Ramírez MG Oral hiazid et_in MG [facility] Tablet e 25 _the_ Health MG morni Care) ng} Sertraline Sertra 1.0 active Sertraline eCW3 100 MG Oral line {tabl HCl 100 MG ( Ramírez Tablet HCl et} [facility] Sertraline 100 MG Health HCl 100 MG Care) Clonazepam Clonaz 1.0 active Clonazepam 1 eCW3 1 MG Oral epam 1 {tabl MG (Ramírez Tablet MG et} [facility] Care) Simvastatin Simvas 1.0 active Simvastat in eCW3 20 MG Oral tatin {tabl 20 MG ([place] Tablet 20 MG et_in [facility] _[facility] eveni Care) ng} Suboxone UNK suspend Suboxone 8-2 eCW3 8-2 MG ed MG ([facility] Care) Genvoya Genvoy active Genvoya eCW3 150-150-200 a [phone] (Ramírez -10 MG 150-15 10 MG [facility] 0-200- Health 10 MG Care) Fluoxetine Prozac 1.0 active Prozac 40 MG eCW3 40 MG Oral 40 MG {caps (Ramírez Capsule ule_i [facility] [Prozac] n_the [facility] Prozac 40 _morn Care) MG ing} Simvastatin Simvas 1.0 active Simvastat in eCW3 20 MG Oral tatin {tabl 20 MG ([place] Tablet 20 MG et_in [facility] _[facility] eveni Care) ng} Clonidine Clonid 1.0 suspend Clonidine eCW3 Hydrochlori ine {tabl ed HCl 0.1 MG ( Ramírez de 0.1 MG HCl et_at [facility] Oral Tablet 0.1 MG _bedt Healt h Clonidine edvin} Care) HCl 0.1 MG Insurance Providers Payer name Policy type Policy ID Covered Covered libertarian's Policy P faustino / Coverage libertarian ID relationship to [employer] type [employer] [id number] FIRST Problems, Conditions, and Diagnoses Code Display Name Description Problem Effective Data Type Dates Source(s) F31.81 Bipolar II disorder Bipolar II disorder Problem 020 eCW3 12:00:00 AM ([facility]) F11.20 Opioid dependence Opioid dependence, Problem 10/19/2019 eCW3 uncomplicated 12:00:00 AM ([facility]) N52.9 Erectile dysfunction, Erectile dysfunction, Problem eCW3 unspecified erectile unspecified erectile 12:00 :00 AM ([place] dysfunction type dysfunction type [facility]) 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 Problem 12/2018 eCW3 therapy patient therapy patient 12:00:00 AM ([facility]) J30.9 Allergic rhinitis, Allergic rhinitis, Problem 9 eCW3 unspecified unspecified 12:00:00 AM [facility] [facility]) F43.10 PTSD (post-traumatic PTSD (post-traumatic Problem 04/30 eCW3 stress disorder) stress disorder) 12:00:00 AM ( [facility]) B18.2 Chronic hepatitis C Chronic hepatitis C Problem 019 eCW3 without hepatic coma without hepatic coma 12:00 :00 AM ([facility]) F14.10 Cocaine abuse Cocaine abuse Problem 12/10/2018 eCW3 12:00:00 AM ([facility]) L02.11 Neck abscess Neck abscess Problem 12/10/2018 eCW3 12:00:00 AM ([facility]) E55.9 Vitamin D deficiency Vitamin D deficiency Problem 10/12 eCW3 12:00:00 AM ([facility]) E78.00 Pure Pure Problem 10/12/2018 eCW3 hypercholesterolemia hypercholesterolemia 12:00 :00 AM ([facility]) N62 Idiopathic gynecomastia Idiopathic gynecomastia Problem 09/25/2018 eCW3 12:00:00 AM ([facility]) F19.10 Substance abuse Substance abuse Problem 09/25/2018 eCW3 12:00:00 AM ([facility]) F17.200 Tobacco user Nicotine dependence, Problem 09/25/2018 eC W3 unspecified, 12:00:00 AM ([facility]) F17.200 Smoking Smoking Problem 01/19/2018 eCW3 12:00:00 AM ([facility]) I10 Essential hypertension Essential hypertension Problem 0 01/19/2018 eCW3 12:00:00 AM ([facility]) F32.9 Major depression, Major depressive Problem 09/16/2017 e CW3 single episode disorder, single 12:00:00 AM (Hu dson episode, unspecified [facility]) B20 Human immunodeficiency HIV (human Problem 05/23/2017 eC W3 virus infection immunodeficiency virus 12:00:00 AM ([facility]) F39 Mood disorder Mood disorder Problem 05/23/2017 eCW3 12:00:00 AM ([facility]) Social History Code Duration Value Status Description Data Source(s ) Smoking 06/01/2020 Current Smoker completed Current Smoker eCW3 ( [facility] 12:00:00 AM EDT Health Ca re) Smoking 06/01/2020 Current Smoker completed Current Smoker eCW3 ( [facility] 12:00:00 AM EDT Health Ca re) Smoking 05/04/2020 Current Smoker completed Current Smoker eCW3 ( [facility] 12:00:00 AM ED Health Ca re) Smoking 04/04/2020 Current Smoker completed Current Smoker eCW3 ( [facility] 12:00:00 AM EDT Health Ca re) Smoking 03/17/2020 Current Smoker completed Current Smoker eCW3 ( [facility] 12:00:00 AM EDT Health Ca re) Smoking 03/17/2020 Current Smoker completed Current Smoker eCW3 ( [facility] 12:00:00 AM EDT Health Ca re) Current Smoker completed Current Smoker eCW3 ( [facility]) Current Smoker completed Current Smoker eCW3 ( [facility]) Current Smoker completed Current Smoker eCW3 ( [facility]) Current Smoker completed Current Smoker eCW3 ( [facility]) Current Smoker completed Current Smoker eCW3 ( [facility]) Current Smoker completed Current Smoker eCW3 ( [facility]) Vital Signs ID Date Data Source UNK Name Value Range Interpretation Code Description Data Source(s) Diastolic blood 81 mm[Hg] 81 mm[Hg] eCW3 ([facility]) Systolic blood 114 mm[Hg] 114 mm[Hg] eCW3 ([facility]) Body temperature 98.1 [degF] 98.1 [degF] eCW3 ( [facility]) Heart rate 18 /min 18 /min eCW3 ([facility]) Body mass index 33.52 kg/m2 33.52 kg/m2 eCW3 ([facility] ud[facility] (BMI) [Ratio] [facility]) Body weight 227 [lb_av] 227 [lb_av] eCW3 ([facility]) Body height 69 [in_i] 69 [in_i] eCW3 ([facility]) Diastolic blood 81 mm[Hg] 81 mm[Hg] eCW3 ([facility]) Systolic blood 123 mm[Hg] 123 mm[Hg] eCW3 ([facility]) Body temperature 97.8 [degF] 97.8 [degF] eCW3 ( [facility]) Heart rate 18 /min 18 /min eCW3 ([facility]) Body mass index 33.52 kg/m2 33.52 kg/m2 eCW3 ([facility] (BMI) [Ratio] [facility]) Body weight 227 [lb_av] 227 [lb_av] eCW3 ([facility]) Body height [in_i] eCW3 ([facility]) Diastolic blood 83 mm[Hg] 83 mm[Hg] eCW3 ([facility]) Systolic blood 120 mm[Hg] 120 mm[Hg] eCW3 ([facility]) Body temperature 98.1 [degF] 98.1 [degF] eCW3 ( [facility]) Heart rate 18 /min 18 /min eCW3 ([facility]) Body mass index 33.52 kg/m2 33.52 kg/m2 eCW3 ([facility] (BMI) [Ratio] [facility]) Body weight 227 [lb_av] 227 [lb_av] eCW3 ([facility]) Body height 69 [in_i] 69 [in_i] eCW3 ([facility]) Diastolic blood 84 mm[Hg] 84 mm[Hg] eCW3 ([facility]) Systolic blood 120 mm[Hg] 120 mm[Hg] eCW3 ([facility]) Body temperature 97.9 [degF] 97.9 [degF] eCW3 ( [facility]) Heart rate 18 /min 18 /min eCW3 ([facility]) Body mass index 34.55 kg/m2 34.55 kg/m2 eCW3 ([place] rub[place] (BMI) [Ratio] [facility]) Body weight 234 [lb_av] 234 [lb_av] eCW3 ([facility]) Body height [in_i] eCW3 ([facility]) Diastolic blood 98 mm[Hg] 98 mm[Hg] eCW3 ([facility]) Systolic blood 142 mm[Hg] 142 mm[Hg] eCW3 ([facility]) Body temperature 98.5 [degF] 98.5 [degF] eCW3 ( [facility]) Heart rate 18 /min 18 /min eCW3 ([facility]) Body mass index 34.99 kg/m2 34.99 kg/m2 eCW3 (Payal ramona (BMI) [Ratio] [facility]) Body weight 237 [lb_av] 237 [lb_av] eCW3 ([facility]) Body height [in_i] eCW3 ([facility]) Diastolic blood 87 mm[Hg] 87 mm[Hg] eCW3 ([facility]) Systolic blood 131 mm[Hg] 131 mm[Hg] eCW3 ([facility]) Body temperature 98.9 [degF] 98.9 [degF] eCW3 ( [facility]) Heart rate 20 /min 20 /min eCW3 ([facility]) Body mass index 34.40 kg/m2 34.40 kg/m2 eCW3 ([place] rub[place] (BMI) [Ratio] [facility]) Body weight 233 [lb_av] 233 [lb_av] eCW3 ([facility]) Body height [in_i] eCW3 ([facility]) Patient Treatment Plan of Care Planned Activity Planned Date Details Description Data Source (s) Buprenorphine 4 MG / Naloxone 05/04/2020 eCW3 ([facility] 1 MG Oral Strip [Suboxone] 12:00:[address] [facility]) Buprenorphine 4 MG / Naloxone 04/04/2020 eCW3 ([facility] 1 MG Oral Strip [Suboxone] 12:00:[address] [facility]) Buprenorphine 4 MG / Naloxone 04/04/2020 eCW3 ([facility] 1 MG Oral Strip [Suboxone] 12:00:[address] [facility]) Loratadine 10 MG Oral Capsule 04/30/2019 eCW3 ([facility] [Claritin] 12:00:[address] [facility]) Fluticasone Propionate 50 04/30/2019 eC W3 ([facility]/ACT 12:00:[address] [facility]) Loratadine 10 MG Oral Capsule 04/30/2019 eCW3 ([facility] [Claritin] 12:00:[address] [facility]) Fluticasone Propionate 50 04/30/2019 eC W3 ([facility] MCG/ACT 12:00:[address] [facility]) Genvoya [phone] MG eC W3 ([facility]) Genvoya [phone] MG eC W3 ([facility]) Genvoya [phone] MG eC W3 ([facility]) Buprenorphine 4 MG / Naloxone eCW3 ([facility] 1 MG Oral Strip [Suboxone] [facility]) Genvoya [phone] MG eC W3 ([facility]) Buprenorphine 4 MG / Naloxone eCW3 ([facility] 1 MG Oral Strip [Suboxone] [facility]) Genvoya [phone] MG eC W3 ([facility]) Omeprazole 20 MG Delayed eCW 3 ([facility] Release Oral Capsule [facility]) Tab-A-Yanelis/Iron - eCW3 ([facility]) 200 ACTUAT Albuterol 0.09 eC W3 ([facility] MG/ACTUAT Metered Dose Healt [facility]) Inhaler [Ventolin] Hydrochlorothiazide 25 MG eC W3 ([facility] Oral Tablet [facility]) Aspirin 81 MG Delayed Release eCW3 ([facility] Oral Tablet [facility]) Simvastatin 20 MG Oral Tablet eCW3 ([facility]) Genvoya [phone] MG eC W3 ([facility]) Omeprazole 20 MG Delayed eCW 3 ([facility] Oral Capsule [facility]) Tab-A-Yanelis/Iron - eCW3 ([facility]) 200 ACTUAT Albuterol 0.09 eC W3 ([facility] MG/ACTUAT [facility]) Inhaler [Ventolin] Hydrochlorothiazide 25 MG eC W3 ([facility] Oral Tablet [facility]) Aspirin 81 MG Delayed Release eCW3 ([facility] Oral Tablet [facility]) Simvastatin 20 MG Oral Tablet eCW3 ([facility])
[2020-08-22] MEDS: MELATONIN 5 MG TABLETS PO SCH ×2 (00:33→22:25)
[2020-08-22] MEDS: LORazepam 2 MG TABLET PO SCH ×5 (00:34→22:25)
[2020-08-22] MEDS: hydrOXYzine PAMOATE 25 MG CAPSULE (FP) PO SCH ×5 (05:20→22:25)
--- NOTE | 2020-08-22 09:45 | PN ---
S CIWA - CIWA Score Nausea/Vomitin Muscle Tremors: 2 Anxiety: 2 Agitation: 2 Paroxysmal Sweats: 1-Minimal Palms Moist Orientation: 0-Oriented Tacttile Disturbances: 1-Very Mild Itch/Numbness Auditory Disturbances: 0-None Visual Disturbances: 0-None Headache: 2-Mild CIWA-Ar Total Score: 12 [facility] Progress Note (SOAP) Subjective: alert,irritable,anxious,interrupted sleep,tremor,pain in the body and back,nausea Objective: 08/22/20 11:28 Vital Signs Temperature 97.7 F 08/22/20 08:53 Pulse Rate 83 08/22/20 08:53 Respiratory Rate 18 08/22/20 08:53 Blood Pressure 96/61 08/22/20 08:53 O2 Sat by Pulse Oximetry (%) 98 08/22/20 06:21 Assessment: 08/22/20 11:31 withdrawal symptom Plan: continue detox ativan regimen,patient is on suboxone 4 mgs/1 mgs sl flim last filled on 07/27/20 90 film,stated it was stolen, stated take it twice a day,suboxone sl film 4 mg/1mg bid
--- NOTE | 2020-08-22 09:55 | EKG ---
Test Reason : Blood Pressure : / mmHG Vent. Rate : 074 BPM Atrial Rate : 074 BPM P-R Int : 128 ms QRS Dur : 086 ms QT Int : 370 ms P-R-T Axes : 037 041 031 degrees QTc Int : 410 ms NORMAL SINUS RHYTHM NORMAL ECG NO PREVIOUS ECGS AVAILABLE Confirmed by Daniel Obrien MD ([id number]) on 08/22/2020 9:54:24 AM Referred By: Confirmed By:Danile Obrien MD
[2020-08-22] MEDS: NICOTINE 7 MG/24 HOURS TOPICAL PATCH TD SCH (10:19)
[2020-08-22] MEDS: PRENATAL VITAMINS W/ FOLIC ACID TABLET (FP) PO SCH (10:19)
[2020-08-22] MEDS: BUPRENORPHINE/NALOXONE 4 MG/1 MG FILM PACKET SL SCH ×2 (10:20→22:25)
--- NOTE | 2020-08-22 14:38 | CONSULT ---
[facility] Psychiatric Consult - Data Date of interview: 08/22/20 Admission source: [facility] Identifying data: Revisit to [facility] and admission to [address] [place] [address] for this 44 y/o male self-referred for detoxification treatment. GIGI issues : alcohol, benzodiazepine, cocaine, heroin. Patient is single, a father of five, domiciled, unemployed and supported on [employer] funds. Substance Abuse History: Discussed with the patient. GIGI profile as follows : Smoking history: Current every day smoker. Have you smoked in the past 12 months: Yes. Approximately how many cigarettes per day: 10. Hx Chewing Tobacco Use: No. Initiated information on smoking cessation: Yes. 'Breaking Loose' booklet given: 08/21/20. - Substance & Tx. History. Hx Alcohol Use: Yes (detox years ago). Substance Use Type: Alcohol, Heroin, Opiates. Hx Substance Use Treatment: Yes. - Substances abused. Alcohol. Substance route: Oral. Frequency: Daily. Amount used: 6 beers. Age of first use: 17. Date of last use: 08/21/20. Cocaine. Substance route: Smoking. Frequency: Daily. Amount used: 1gram. Age of first use: 33. Date of last use: 08/21/20. Benzodiazepine (Klonopin). Substance route: Oral. Frequency: Daily. Amount used: 4mg. Age of first use: 33. Date of last use: 08/18/20. Heroin. Substance route: Injection. Amount used: 4-6 bags. Age of first use: 33. Date of last use: 08/21/20. History of multiple GIGI treatment failures. Medical History: Medical history is remarkable for bronchial asthma, HIV infection since 2017 (on ART medications), hepatitis C and hypertension. Psychiatric History: Patient endorses history of multiple psychiatric hospitalizations (all at [facility]). Diagnosed with MDD and Anxiety Disorder. Last hospitalized in 2018. Mr Trevizo reports OPD care at the [facility] in the [place]. He is maintained on a regimen of wellbutrin + remeron + clonazepam + suboxone. Adherence remains questionable (patient claims that visiting friends " stole " his medications). Patient admits to one suicide attempt, in 2018, via jumping on the [facility] subway tracks (causing service interruption for hours, as per self-report). Physical/Sexual Abuse/Trauma History: Patient denies history of abuse. Additional Comment: No toxicology for review. Mental Status Exam - Mental Status Exam Alert and Oriented to: Time, Place, Person Cognitive Function: Good Patient Appearance: Well Groomed (obese) Mood: Anxious, Hopeful Affect: Appropriate, Normal Range Patient Behavior: Fatigued, Appropriate, Cooperative Speech Pattern: Clear, Appropriate Voice Loudness: Normal Thought Process: Intact, Goal Oriented Thought Disorder: Not Present Hallucinations: Denies Suicidal Ideation: Denies Homicidal Ideation: Denies Insight/Judgement: Poor Sleep: Poorly, Difficulty falling asleep Appetite: Good Gait/Station: Normal Psychiatric Findings - Problem List ([place] 1, 2,3) (1) Alcohol use disorder Current Visit: Yes Status: Chronic (2) Opioid dependence on agonist therapy Current Visit: Yes Status: Chronic (3) Nicotine dependence Current Visit: Yes Status: Chronic (4) Cocaine use disorder Current Visit: Yes Status: Chronic (5) Drug-induced mood disorder Current Visit: Yes Status: Chronic (6) History of depression Current Visit: Yes Status: Chronic (7) Insomnia Current Visit: Yes Status: Chronic - Initial Treatment Plan Initial Treatment Plan: Psychoeducation. Sleep hygiene. Support. Detoxification in progress. Medications discussed. Patient wants to resume wellbutrin + fabiano pilar. Side effects/benefits of both molecules are explained to the patient. [place] consent (verbal). Ordered : wellbutrin XL 150 mg po daily + remeron 7.5 mg po hs. Observation.
[2020-08-22] MEDS: THIAMINE HCL 100 MG TABLET (FP) PO SCH (22:25)
[2020-08-22] MEDS: MIRTAZAPINE 15 MG TABLET (FP) PO SCH (22:26)
[2020-08-23] MEDS: hydrOXYzine PAMOATE 25 MG CAPSULE (FP) PO SCH ×5 (05:32→22:12)
[2020-08-23] MEDS: LORazepam 1 MG TABLET PO SCH ×4 (05:32→22:12)
[2020-08-23] MEDS: PRENATAL VITAMINS W/ FOLIC ACID TABLET (FP) PO SCH (10:16)
[2020-08-23] MEDS: BUPRENORPHINE/NALOXONE 4 MG/1 MG FILM PACKET SL SCH ×2 (10:16→22:13)
[2020-08-23] MEDS: NICOTINE 7 MG/24 HOURS TOPICAL PATCH TD SCH (10:17)
--- NOTE | 2020-08-23 10:32 | PN ---
S CIWA - CIWA Score Nausea/Vomitin-Mild Nausea/No Vomiting Muscle Tremors: 2 Anxiety: 2 Agitation: 1-Slight > Activity Paroxysmal Sweats: No Perspiration Orientation: 0-Oriented Tacttile Disturbances: 0-None Auditory Disturbances: 0-None Visual Disturbances: 0-None Headache: 0-None Present CIWA-Ar Total Score: 6 BHS Progress Note (SOAP) Subjective: alert,irritable,anxious,interrupted sleep,aching pain Objective: 08/23/20 15:42 Vital Signs Temperature 97.7 F 08/23/20 12:44 Pulse Rate 80 08/23/20 12:44 Respiratory Rate 20 08/23/20 12:44 Blood Pressure 125/85 08/23/20 12:44 O2 Sat by Pulse Oximetry (%) 100 08/23/20 12:44 Assessment: 08/23/20 15:42 withdrawal symptom Plan: continue ativan regimen,continue suboxone 4 mg/1mg Sl film bid
[2020-08-23] MEDS: THIAMINE HCL 100 MG TABLET (FP) PO SCH (22:12)
[2020-08-23] MEDS: MIRTAZAPINE 15 MG TABLET (FP) PO SCH (22:13)
[2020-08-23] MEDS: MELATONIN 5 MG TABLETS PO SCH (22:13)
[2020-08-24] MEDS ORDERED: LORazepam 0.5 MG TABLET PO PRN
[2020-08-24] MEDS: hydrOXYzine PAMOATE 25 MG CAPSULE (FP) PO SCH ×5 (06:52→22:20)
[2020-08-24] MEDS: LORazepam 0.5 MG TABLET PO SCH ×4 (06:52→22:18)
[2020-08-24] MEDS: PRENATAL VITAMINS W/ FOLIC ACID TABLET (FP) PO SCH (10:27)
[2020-08-24] MEDS: BUPRENORPHINE/NALOXONE 4 MG/1 MG FILM PACKET SL SCH ×2 (10:28→22:20)
[2020-08-24] MEDS: NICOTINE 7 MG/24 HOURS TOPICAL PATCH TD SCH (10:29)
--- NOTE | 2020-08-24 13:28 | PN ---
S CIWA - CIWA Score Nausea/Vomitin-Mild Nausea/No Vomiting Muscle Tremors: 2 Anxiety: 2 Agitation: 1-Slight > Activity Paroxysmal Sweats: No Perspiration Orientation: 0-Oriented Tacttile Disturbances: 0-None Auditory Disturbances: 0-None Visual Disturbances: 0-None Headache: 1-Very Mild CIWA-Ar Total Score: 7 S Progress Note (SOAP) Subjective: alert,irritable,anxious,interrupted sleep,aching pain, Objective: 08/24/20 16:34 Vital Signs Temperature 97.5 F L 08/24/20 13:02 Pulse Rate 71 08/24/20 13:02 Respiratory Rate 18 08/24/20 13:02 Blood Pressure 93/59 L 08/24/20 13:02 O2 Sat by Pulse Oximetry (%) 95 08/24/20 13:02 Assessment: 08/24/20 16:35 withdrawal symptom Plan: continue detox ativan regimen,continue suboxone 4 mg/1 mg sl film bid,discharge in am
[2020-08-24] MEDS: THIAMINE HCL 100 MG TABLET (FP) PO SCH (22:18)
[2020-08-24] MEDS: MELATONIN 5 MG TABLETS PO SCH (22:18)
[2020-08-24] MEDS: MIRTAZAPINE 15 MG TABLET (FP) PO SCH (22:18)
[2020-08-25] MEDS ORDERED: LORazepam 0.5 MG TABLET PO ONE (05:00)
[2020-08-25] MEDS: hydrOXYzine PAMOATE 25 MG CAPSULE (FP) PO SCH ×2 (06:39→09:30)
--- NOTE | 2020-08-25 08:57 | DS ---
[facility] Detox Discharge Summary Admission Date: 08/21/20 Discharge Date: 08/25/20 - History Present History: Alcohol Dependence, Cocaine Dependence Additional Comments: alert,oriented x 3 ambulation on the unit lung clear on auscultation bilaterally no abdominal pain no edema of the legs detox completed,no withdrawal symptom stable for discharge today declined rehab follow up with [facility] and medical provider for medical issue left the unit in stable condition total time spending on discharge 35 minutes Pertinent Past History: hiv hepatitis c depression - Physical Exam Results Vital Signs: Vital Signs Temperature 97.7 F 08/25/20 06:42 Pulse Rate 63 08/25/20 06:42 Respiratory Rate 18 08/25/20 06:42 Blood Pressure 105/74 08/25/20 06:42 O2 Sat by Pulse Oximetry (%) 97 08/25/20 06:42 Pertinent Admission Physical Exam Findings: withdrawal signs and symptom Laboratory Last Values COVID-19 (BELLA) Not detected (Not Detected) 08/21/20 23:50 Vital Signs Temperature 97.3 F L 08/25/20 08:42 Pulse Rate 86 08/25/20 08:42 Respiratory Rate 18 08/25/20 08:42 Blood Pressure 132/78 08/25/20 08:42 O2 Sat by Pulse Oximetry (%) 97 08/25/20 06:42 - Treatment Hospital Course: Detox Protocol Followed, Detoxed Safely, Responded well, Discharged Condition Good Patient has Accepted a Rehab Referral to: declined - Medication Discharge Medications: Ambulatory Orders Bupropion HCl [Wellbutrin Xl -] 150 mg PO DAILY 07/17/15 Albuterol Sulfate Inhaler - [Ventolin HFA Inhaler -] 2 inh PO Q4H PRN #1 inhaler 07/22/15 Elviteg/Cob/Emtri/Tenof Alafen [Genvoya Tablet] 1 each PO DAILY 08/21/20 - Diagnosis (1) Alcohol use disorder Current Visit: Yes Status: Chronic (2) Encounter for monitoring Suboxone maintenance therapy Current Visit: Yes Status: Acute (3) Cocaine use disorder Current Visit: Yes Status: Chronic (4) Nicotine dependence Current Visit: Yes Status: Chronic (5) Depression Current Visit: No Status: Chronic (6) HIV (human immunodeficiency virus infection) Current Visit: Yes Status: Acute - AMA Did Patient Leave Against Medical Advice: No
--- NOTE | 2020-08-25 08:57 | PN ---
[facility] CIWA - CIWA Score Nausea/Vomitin-No Nausea/No Vomiting Muscle Tremors: None Anxiety: 1-Mildly Anxious Agitation: 0-Normal Activity Paroxysmal Sweats: No Perspiration Orientation: 0-Oriented Tacttile Disturbances: 0-None Auditory Disturbances: 0-None Visual Disturbances: 0-None Headache: 0-None Present CIWA-Ar Total Score: 1 S Progress Note (SOAP) Subjective: alert,no complaint Objective: 08/25/20 10:00 Vital Signs Temperature 97.3 F L 08/25/20 08:42 Pulse Rate 86 08/25/20 08:42 Respiratory Rate 18 08/25/20 08:42 Blood Pressure 132/78 08/25/20 08:42 O2 Sat by Pulse Oximetry (%) 97 08/25/20 06:42 Assessment: 08/25/20 10:00 detox completed,no withdrawal symptom Plan: stable for discharge today,follow up with after care program as arrangement
[2020-08-25 09:29] VITALS: BP 132/78; PULSE 86; TEMP 97.3
[2020-08-25] MEDS: NICOTINE 7 MG/24 HOURS TOPICAL PATCH TD SCH (09:30)
[2020-08-25] MEDS: PRENATAL VITAMINS W/ FOLIC ACID TABLET (FP) PO SCH (09:30)
[2020-08-25] MEDS: BUPRENORPHINE/NALOXONE 4 MG/1 MG FILM PACKET SL SCH (09:30)
== END 2020-08-25 09:45 | disposition home or self-care (01) | DRG 773 ==
LOC: YASAS 16:30 → Y3N 23:48
PROVIDERS: ADMIT Allergy & Immunology; ATTEND Allergy & Immunology
PROC: HZ2ZZZZ Detoxification Services for Substance Abuse Treatment (ICD-10-PCS; principal; 2020-08-21)
DX: F10.230 Alcohol dependence with withdrawal, uncomplicated (principal); F11.20 Opioid dependence, uncomplicated; F14.20 Cocaine dependence, uncomplicated; F13.20 Sedative, hypnotic or anxiolytic dependence, uncomplicated; F17.210 Nicotine dependence, cigarettes, uncomplicated; F19.24 Other psychoactive substance dependence with psychoactive substance-induced mood disorder; F32.9 Major depressive disorder, single episode, unspecified; F41.9 Anxiety disorder, unspecified; Z21 Asymptomatic human immunodeficiency virus [HIV] infection status; I10 Essential (primary) hypertension; J45.909 Unspecified asthma, uncomplicated; G47.00 Insomnia, unspecified; B18.2 Chronic viral hepatitis C; Z51.81 Encounter for therapeutic drug level monitoring; Z79.899 Other long term (current) drug therapy; Z91.5 Personal history of self-harm; Z91.013 Allergy to seafood; Z56.0 Unemployment, unspecified
CPT/HCPCS: 93005; 93010; C9803; U0003

== ENCOUNTER 2021-11-29 22:45 | Emergency (ER) | payer OTHER ==
[2021-11-29 22:58] VITALS: TEMP 98.9; BMI 34.2
[2021-11-29] MEDS ORDERED: diazePAM CARPU-JECT 10 MG/2 ML DISP.SYRIN IVPUSH ONE (23:15)
[2021-11-29] MEDS ORDERED: ACETAMINOPHEN 1000 MG/100 ML BAG IVPB ONE (23:25)
[2021-11-30] MEDS ORDERED: ACETAMINOPHEN 500 MG TABLET (FP) PO ONE (00:08)
[2021-11-30] MEDS ORDERED: chlordiazePOXIDE HCL 25 MG CAPSULE PO ONE (00:08)
[2021-11-30] MEDS ORDERED: ACETAMINOPHEN 325 MG TABLET (FP) ONE (00:25)
[2021-11-30] MEDS ORDERED: chlordiazePOXIDE HCL 25 MG CAPSULE ONE (00:26)
[2021-11-30] MEDS ORDERED: AMOX TR/POT CLAV 875MG/125MG TABLETS (FP) PO ONE (01:40)
[2021-11-30] MEDS ORDERED: AMOX TR/POT CLAV 875MG/125MG TABLETS (FP) ONE (04:15)
[2021-11-30 06:33] VITALS: BP 117/79; PULSE 80
== END 2021-11-30 06:36 | disposition home or self-care (01) ==
LOC: JER 22:45
PROC: 3E0333Z Introduction of Anti-inflammatory into Peripheral Vein, Percutaneous Approach (ICD-10-PCS; principal; 2021-11-29)
PROC: 3E033NZ Introduction of Analgesics, Hypnotics, Sedatives into Peripheral Vein, Percutaneous Approach (ICD-10-PCS; 2021-11-29)
DX: S60.921A Unspecified superficial injury of right hand, initial encounter (principal); L03.113 Cellulitis of right upper limb; Y04.2XXA Assault by strike against or bumped into by another person, initial encounter
CPT/HCPCS: 73130-TC-RT-FY; 99282-25

== ENCOUNTER 2021-11-30 08:37 | Inpatient (IN) | payer OTHER ==
[2021-11-30 08:45] VITALS: BMI 34.2
[2021-11-30] MEDS ORDERED: IBUPROFEN 400 MG TABLET (FP) PO PRN (09:16)
[2021-11-30] MEDS ORDERED: MENTHOL/PHENOL 1 EACH UD MM PRN (09:16)
[2021-11-30] MEDS ORDERED: METHOCARBAMOL 500 MG TABLET PO PRN (09:16)
[2021-11-30] MEDS ORDERED: MAG HYDROX/AL HYDROX/SIMETH 30 ML UNIT-DOSE CUP PO PRN (09:16)
[2021-11-30] MEDS ORDERED: NICOTINE 10 MG CARTRIDGE (INHALER) IH PRN (09:16)
[2021-11-30] MEDS ORDERED: MAGNESIUM CITRATE 300 ML BOTTLE PO PRN (09:16)
[2021-11-30] MEDS ORDERED: ONDANSETRON *ODT* 4 MG TABLET SL PRN (09:16)
[2021-11-30] MEDS ORDERED: MAGNESIUM HYDROX 2400MG/30ML ORAL SUSPENSION 30 ML CUP PO PRN (09:16)
[2021-11-30] MEDS ORDERED: ACETAMINOPHEN 325 MG TABLET (FP) PO PRN ×2 (09:16)
[2021-11-30] MEDS ORDERED: BISMUTH SUBSALICYLATE 524 MG/30 ML PO PRN (09:16)
[2021-11-30] MEDS ORDERED: ALBUTEROL SO4 HFA INHALER IH PRN (09:21)
[2021-11-30] MEDS ORDERED: methaDONE HCL 10 MG TABLET PO SCH (09:30)
[2021-11-30] MEDS ORDERED: methaDONE 80 MG, methaDONE 20 MG PO ONE (11:45)
[2021-11-30] MEDS ORDERED: FLU VACC QS2021-22(6MOS UP)/PF 60 MCG/0.5 ML SYRINGE IM ONE (12:00)
[2021-11-30] MEDS ORDERED: methaDONE HCL 10 MG TABLET ONE (12:03)
[2021-11-30] MEDS ORDERED: methaDONE HCL 40 MG DISPERSABLE TABLET ONE (12:04)
[2021-11-30] MEDS: PRENATAL VITAMINS W/ FOLIC ACID TABLET (FP) PO SCH (12:07)
[2021-11-30] MEDS: hydrOXYzine PAMOATE 25 MG CAPSULE (FP) PO SCH ×4 (12:07→22:22)
[2021-11-30] MEDS: NICOTINE 14 MG/24 HOURS TOPICAL PATCH TD SCH (12:08)
[2021-11-30] MEDS ORDERED: ARIPiprazole 15 MG TABLET PO ONE (13:15)
[2021-11-30] MEDS: AMOX TR/POT CLAV 875MG/125MG TABLETS (FP) PO SCH ×2 (13:35→22:22)
[2021-11-30] MEDS: ELVITEG/COB/EMTRI/TENOF (GENVOYA) TABLET (NF) PO SCH (13:36)
[2021-11-30] MEDS ORDERED: MELATONIN 5 MG TABLETS PO SCH (22:00)
[2021-11-30] MEDS: MIRTAZAPINE 15 MG TABLET (FP) PO SCH (22:22)
[2021-11-30] MEDS: THIAMINE HCL 100 MG TABLET (FP) PO SCH (22:22)
[2021-12-01] MEDS ORDERED: methaDONE HCL 10 MG TABLET ONE (05:06)
[2021-12-01] MEDS ORDERED: methaDONE HCL 40 MG DISPERSABLE TABLET ONE (05:07)
[2021-12-01] MEDS: methaDONE 80 MG, methaDONE 20 MG PO SCH (05:35)
[2021-12-01] MEDS: hydrOXYzine PAMOATE 25 MG CAPSULE (FP) PO SCH ×5 (05:37→22:24)
[2021-12-01] MEDS: ELVITEG/COB/EMTRI/TENOF (GENVOYA) TABLET (NF) PO SCH (07:03)
[2021-12-01] MEDS: AMOX TR/POT CLAV 875MG/125MG TABLETS (FP) PO SCH ×2 (10:04→22:24)
[2021-12-01] MEDS: PRENATAL VITAMINS W/ FOLIC ACID TABLET (FP) PO SCH (10:04)
[2021-12-01] MEDS: ARIPiprazole 15 MG TABLET PO SCH (10:04)
[2021-12-01] MEDS: NICOTINE 14 MG/24 HOURS TOPICAL PATCH TD SCH (10:05)
[2021-12-01] MEDS: MIRTAZAPINE 15 MG TABLET (FP) PO SCH (22:24)
[2021-12-01] MEDS: THIAMINE HCL 100 MG TABLET (FP) PO SCH (22:24)
[2021-12-02] MEDS ORDERED: methaDONE HCL 10 MG TABLET ONE (04:20)
[2021-12-02] MEDS ORDERED: methaDONE HCL 40 MG DISPERSABLE TABLET ONE (04:20)
[2021-12-02] MEDS: hydrOXYzine PAMOATE 25 MG CAPSULE (FP) PO SCH ×4 (05:33→17:43)
[2021-12-02] MEDS: methaDONE 80 MG, methaDONE 20 MG PO SCH (05:33)
[2021-12-02] MEDS: ELVITEG/COB/EMTRI/TENOF (GENVOYA) TABLET (NF) PO SCH (08:02)
[2021-12-02] MEDS: ARIPiprazole 15 MG TABLET PO SCH (10:10)
[2021-12-02] MEDS: NICOTINE 14 MG/24 HOURS TOPICAL PATCH TD SCH (10:10)
[2021-12-02] MEDS: PRENATAL VITAMINS W/ FOLIC ACID TABLET (FP) PO SCH (10:10)
[2021-12-02] MEDS: AMOX TR/POT CLAV 875MG/125MG TABLETS (FP) PO SCH (10:10)
[2021-12-02 17:21] VITALS: BP 121/82; PULSE 76; TEMP 98.1
== END 2021-12-02 19:01 | disposition other institution (70) | DRG 773 ==
LOC: YASAS 08:37 → Y6N 10:46
PROVIDERS: ADMIT Allergy & Immunology; ATTEND Allergy & Immunology
PROC: HZ2ZZZZ Detoxification Services for Substance Abuse Treatment (ICD-10-PCS; principal; 2021-11-30)
DX: F10.230 Alcohol dependence with withdrawal, uncomplicated (principal); F11.20 Opioid dependence, uncomplicated; F14.20 Cocaine dependence, uncomplicated; F17.210 Nicotine dependence, cigarettes, uncomplicated; F19.282 Other psychoactive substance dependence with psychoactive substance-induced sleep disorder; F19.24 Other psychoactive substance dependence with psychoactive substance-induced mood disorder; F33.1 Major depressive disorder, recurrent, moderate; F43.10 Post-traumatic stress disorder, unspecified; F34.1 Dysthymic disorder; Z21 Asymptomatic human immunodeficiency virus [HIV] infection status; I10 Essential (primary) hypertension; L03.113 Cellulitis of right upper limb; J45.909 Unspecified asthma, uncomplicated; M54.50 Low back pain, unspecified; G89.29 Other chronic pain; B18.2 Chronic viral hepatitis C; Z62.810 Personal history of physical and sexual abuse in childhood; Z59.00 Homelessness unspecified; Z56.0 Unemployment, unspecified; Z91.013 Allergy to seafood
CPT/HCPCS: 93005; 93010; C9803; U0003; U0005

== ENCOUNTER 2021-12-02 19:15 | Inpatient (IN) | payer OTHER ==
[~2021-12-02 19:15] MED LIST: ACETAMINOPHEN 325 MG TABLET (FP) PO PRN; ALBUTEROL SO4 HFA INHALER IH PRN; IBUPROFEN 400 MG TABLET (FP) PO PRN; LOPERAMIDE HCL 2 MG CAPSULE PO PRN; MAG HYDROX/AL HYDROX/SIMETH 30 ML UNIT-DOSE CUP PO PRN; MAGNESIUM CITRATE 300 ML BOTTLE PO PRN; MAGNESIUM HYDROX 2400MG/30ML ORAL SUSPENSION 30 ML CUP PO PRN; NICOTINE 10 MG CARTRIDGE (INHALER) IH PRN; NICOTINE POLACRILEX 2 MG GUM BC PRN; P-EPHED 60MG/TRIPROLIDI 2.5MG TABLET PO PRN; guaiFENesin 200 MG/10 ML 10 ML UNIT-DOSE CUPS PO PRN
[2021-12-02] MEDS: THIAMINE HCL 100 MG TABLET (FP) PO SCH (21:20)
[2021-12-02] MEDS: MIRTAZAPINE 15 MG TABLET (FP) PO SCH (21:20)
[2021-12-02] MEDS: MELATONIN 5 MG TABLETS PO SCH (21:20)
[2021-12-02] MEDS: AMOX TR/POT CLAV 875MG/125MG TABLETS (FP) PO SCH (21:20)
[2021-12-02] MEDS: SIMETHICONE 80 MG TAB.CHEW (FP) PO SCH (21:36)
[2021-12-03] MEDS ORDERED: methaDONE HCL 40 MG DISPERSABLE TABLET PO SCH (06:00)
[2021-12-03] MEDS ORDERED: methaDONE HCL 40 MG DISPERSABLE TABLET ONE (06:02)
[2021-12-03] MEDS ORDERED: methaDONE HCL 10 MG TABLET ONE (06:02)
[2021-12-03] MEDS: methaDONE 80 MG, methaDONE 20 MG PO SCH (06:05)
[2021-12-03] MEDS: ELVITEG/COB/EMTRI/TENOF (GENVOYA) TABLET (NF) PO SCH (07:03)
[2021-12-03] MEDS: PRENATAL VITAMINS W/ FOLIC ACID TABLET (FP) PO SCH (09:58)
[2021-12-03] MEDS: AMOX TR/POT CLAV 875MG/125MG TABLETS (FP) PO SCH ×2 (09:58→21:04)
[2021-12-03] MEDS: ARIPiprazole 15 MG TABLET PO SCH (09:58)
[2021-12-03] MEDS: NICOTINE 14 MG/24 HOURS TOPICAL PATCH TD SCH (09:59)
[2021-12-03] MEDS: SIMETHICONE 80 MG TAB.CHEW (FP) PO SCH ×4 (09:59→21:04)
[2021-12-03] MEDS ORDERED: MODERNA COVID-19 VACC,MRNA/PF 50 MCG/0.25 ML EACH IM ONE (11:00)
[2021-12-03] MEDS: MELATONIN 5 MG TABLETS PO SCH (21:03)
[2021-12-03] MEDS: THIAMINE HCL 100 MG TABLET (FP) PO SCH (21:04)
[2021-12-03] MEDS: MIRTAZAPINE 15 MG TABLET (FP) PO SCH (21:04)
[2021-12-04] MEDS ORDERED: methaDONE HCL 40 MG DISPERSABLE TABLET ONE (02:38)
[2021-12-04] MEDS ORDERED: methaDONE HCL 10 MG TABLET ONE (02:38)
[2021-12-04] MEDS: methaDONE 80 MG, methaDONE 20 MG PO SCH (06:05)
[2021-12-04] MEDS: ELVITEG/COB/EMTRI/TENOF (GENVOYA) TABLET (NF) PO SCH (08:04)
[2021-12-04] MEDS: AMOX TR/POT CLAV 875MG/125MG TABLETS (FP) PO SCH ×2 (09:31→21:44)
[2021-12-04] MEDS: ARIPiprazole 15 MG TABLET PO SCH (09:31)
[2021-12-04] MEDS: PRENATAL VITAMINS W/ FOLIC ACID TABLET (FP) PO SCH (09:31)
[2021-12-04] MEDS: SIMETHICONE 80 MG TAB.CHEW (FP) PO SCH ×4 (09:32→21:44)
[2021-12-04] MEDS: NICOTINE 14 MG/24 HOURS TOPICAL PATCH TD SCH (09:32)
[2021-12-04] MEDS: hydrOXYzine PAMOATE 25 MG CAPSULE (FP) PO PRN (10:45)
[2021-12-04] MEDS: MIRTAZAPINE 15 MG TABLET (FP) PO SCH (21:44)
[2021-12-04] MEDS: MELATONIN 5 MG TABLETS PO SCH (21:44)
[2021-12-04] MEDS: THIAMINE HCL 100 MG TABLET (FP) PO SCH (21:44)
[2021-12-05] MEDS ORDERED: methaDONE HCL 40 MG DISPERSABLE TABLET ONE (03:13)
[2021-12-05] MEDS ORDERED: methaDONE HCL 10 MG TABLET ONE (03:13)
[2021-12-05] MEDS: methaDONE 80 MG, methaDONE 20 MG PO SCH (06:24)
[2021-12-05] MEDS: SIMETHICONE 80 MG TAB.CHEW (FP) PO SCH ×4 (09:53→21:09)
[2021-12-05] MEDS: ARIPiprazole 15 MG TABLET PO SCH (09:53)
[2021-12-05] MEDS: NICOTINE 14 MG/24 HOURS TOPICAL PATCH TD SCH (09:53)
[2021-12-05] MEDS: PRENATAL VITAMINS W/ FOLIC ACID TABLET (FP) PO SCH (09:53)
[2021-12-05] MEDS: AMOX TR/POT CLAV 875MG/125MG TABLETS (FP) PO SCH ×2 (09:53→21:08)
[2021-12-05 10:05] LABS: BASO % 0.4 % (0-2.0); EOS % 2.2 % (0-4.5); HEMATOCRIT 40.1 % (35.4-49); HEMOGLOBIN 13.7 GM/dL (11.7-16.9); LYMPH % 11.8 % (8-40); MCH 32.7 pg (25.7-33.7); MCHC 34.2 g/dl (32.0-35.9); MEAN CELL VOLUME 95.9 fl (80-96); MEAN PLT VOLUME 7.9 fl (7.5-11.1); MONO % 10.8 % (3.8-10.2); NEUT % 74.8 % (42.8-82.8); PLATELET COUNT 206 10^3/uL (134-434); RBC 4.18 M/mm3 (4.00-5.60); RDW 14.3 % (11.9-15.9); WHITE BLOOD COUNT 6.1 K/mm3 (4.0-10.0)
[2021-12-05] MEDS: ELVITEG/COB/EMTRI/TENOF (GENVOYA) TABLET (NF) PO SCH (10:14)
[2021-12-05 10:24] LABS: CALCIUM 9.7 mg/dL (8.5-10.1)
[2021-12-05 10:25] LABS: ALBUMIN 3.5 g/dl (3.4-5.0)
[2021-12-05 10:28] LABS: CREATININE 0.8 mg/dL (0.55-1.3)
[2021-12-05 10:29] LABS: BILIRUBIN,TOTAL 0.5 mg/dL (0.2-1); TOT PROT 7.4 g/dl (6.4-8.2)
[2021-12-05] MEDS: hydrOXYzine PAMOATE 25 MG CAPSULE (FP) PO PRN ×2 (18:05→21:09)
[2021-12-05] MEDS: MELATONIN 5 MG TABLETS PO SCH (21:08)
[2021-12-05] MEDS: THIAMINE HCL 100 MG TABLET (FP) PO SCH (21:09)
[2021-12-05] MEDS: MIRTAZAPINE 15 MG TABLET (FP) PO SCH (21:09)
[2021-12-06] MEDS ORDERED: methaDONE HCL 10 MG TABLET ONE (03:02)
[2021-12-06] MEDS ORDERED: methaDONE HCL 40 MG DISPERSABLE TABLET ONE (03:02)
[2021-12-06] MEDS: methaDONE 80 MG, methaDONE 20 MG PO SCH (06:14)
[2021-12-06] MEDS: SIMETHICONE 80 MG TAB.CHEW (FP) PO SCH ×4 (10:19→21:29)
[2021-12-06] MEDS: AMOX TR/POT CLAV 875MG/125MG TABLETS (FP) PO SCH ×2 (10:19→21:28)
[2021-12-06] MEDS: PRENATAL VITAMINS W/ FOLIC ACID TABLET (FP) PO SCH (10:19)
[2021-12-06] MEDS: NICOTINE 14 MG/24 HOURS TOPICAL PATCH TD SCH (10:20)
[2021-12-06] MEDS: hydrOXYzine PAMOATE 25 MG CAPSULE (FP) PO PRN ×2 (10:20→18:09)
[2021-12-06] MEDS: ARIPiprazole 15 MG TABLET PO SCH (10:20)
[2021-12-06] MEDS: ELVITEG/COB/EMTRI/TENOF (GENVOYA) TABLET (NF) PO SCH (11:06)
[2021-12-06] MEDS: MIRTAZAPINE 15 MG TABLET (FP) PO SCH (21:29)
[2021-12-06] MEDS: THIAMINE HCL 100 MG TABLET (FP) PO SCH (21:29)
[2021-12-06] MEDS: MELATONIN 5 MG TABLETS PO SCH (21:29)
[2021-12-07] MEDS ORDERED: methaDONE HCL 10 MG TABLET ONE (03:24)
[2021-12-07] MEDS ORDERED: methaDONE HCL 40 MG DISPERSABLE TABLET ONE (03:24)
[2021-12-07] MEDS: methaDONE 80 MG, methaDONE 20 MG PO SCH (06:01)
[2021-12-07] MEDS: NICOTINE 14 MG/24 HOURS TOPICAL PATCH TD SCH (09:44)
[2021-12-07] MEDS: PRENATAL VITAMINS W/ FOLIC ACID TABLET (FP) PO SCH (09:44)
[2021-12-07] MEDS: SIMETHICONE 80 MG TAB.CHEW (FP) PO SCH ×4 (09:44→21:28)
[2021-12-07] MEDS: ARIPiprazole 15 MG TABLET PO SCH (09:45)
[2021-12-07] MEDS: AMOX TR/POT CLAV 875MG/125MG TABLETS (FP) PO SCH (09:45)
[2021-12-07] MEDS: ELVITEG/COB/EMTRI/TENOF (GENVOYA) TABLET (NF) PO SCH (09:46)
[2021-12-07] MEDS: hydrOXYzine PAMOATE 25 MG CAPSULE (FP) PO PRN ×3 (09:48→21:30)
[2021-12-07] MEDS: MELATONIN 5 MG TABLETS PO SCH (21:30)
[2021-12-07] MEDS: MIRTAZAPINE 15 MG TABLET (FP) PO SCH (21:30)
[2021-12-07] MEDS: THIAMINE HCL 100 MG TABLET (FP) PO SCH (21:31)
[2021-12-08] MEDS ORDERED: methaDONE HCL 40 MG DISPERSABLE TABLET ONE (05:31)
[2021-12-08] MEDS ORDERED: methaDONE HCL 10 MG TABLET ONE (05:31)
[2021-12-08] MEDS: methaDONE 80 MG, methaDONE 20 MG PO SCH (06:24)
[2021-12-08] MEDS: PRENATAL VITAMINS W/ FOLIC ACID TABLET (FP) PO SCH (09:36)
[2021-12-08] MEDS: ARIPiprazole 15 MG TABLET PO SCH (09:37)
[2021-12-08] MEDS: NICOTINE 14 MG/24 HOURS TOPICAL PATCH TD SCH (09:37)
[2021-12-08] MEDS: SIMETHICONE 80 MG TAB.CHEW (FP) PO SCH ×4 (09:37→22:18)
[2021-12-08] MEDS: ELVITEG/COB/EMTRI/TENOF (GENVOYA) TABLET (NF) PO SCH (09:38)
[2021-12-08] MEDS: THIAMINE HCL 100 MG TABLET (FP) PO SCH (22:16)
[2021-12-08] MEDS: MELATONIN 5 MG TABLETS PO SCH (22:16)
[2021-12-08] MEDS: hydrOXYzine PAMOATE 25 MG CAPSULE (FP) PO PRN (22:16)
[2021-12-08] MEDS: MIRTAZAPINE 15 MG TABLET (FP) PO SCH (22:16)
[2021-12-09] MEDS ORDERED: methaDONE HCL 40 MG DISPERSABLE TABLET ONE (03:37)
[2021-12-09] MEDS ORDERED: methaDONE HCL 10 MG TABLET ONE (03:37)
[2021-12-09] MEDS: methaDONE 80 MG, methaDONE 20 MG PO SCH (07:31)
[2021-12-09] MEDS: ELVITEG/COB/EMTRI/TENOF (GENVOYA) TABLET (NF) PO SCH (07:33)
[2021-12-09] MEDS: SIMETHICONE 80 MG TAB.CHEW (FP) PO SCH ×4 (10:09→21:51)
[2021-12-09] MEDS: ARIPiprazole 15 MG TABLET PO SCH (10:09)
[2021-12-09] MEDS: NICOTINE 14 MG/24 HOURS TOPICAL PATCH TD SCH (10:10)
[2021-12-09] MEDS: PRENATAL VITAMINS W/ FOLIC ACID TABLET (FP) PO SCH (10:10)
[2021-12-09] MEDS: hydrOXYzine PAMOATE 25 MG CAPSULE (FP) PO PRN ×2 (13:13→21:51)
[2021-12-09] MEDS: MELATONIN 5 MG TABLETS PO SCH (21:50)
[2021-12-09] MEDS: THIAMINE HCL 100 MG TABLET (FP) PO SCH (21:50)
[2021-12-09] MEDS: MIRTAZAPINE 15 MG TABLET (FP) PO SCH (21:50)
[2021-12-10] MEDS ORDERED: methaDONE HCL 10 MG TABLET ONE (05:16)
[2021-12-10] MEDS ORDERED: methaDONE HCL 40 MG DISPERSABLE TABLET ONE (05:17)
[2021-12-10] MEDS ORDERED: methaDONE 80 MG, methaDONE 20 MG PO SCH (06:00)
[2021-12-10 07:13] VITALS: BP 116/74; PULSE 87; TEMP 97.4
[2021-12-10] MEDS: ELVITEG/COB/EMTRI/TENOF (GENVOYA) TABLET (NF) PO SCH (07:18)
[2021-12-10] MEDS: ARIPiprazole 15 MG TABLET PO SCH (11:18)
[2021-12-10] MEDS: PRENATAL VITAMINS W/ FOLIC ACID TABLET (FP) PO SCH (11:20)
[2021-12-10] MEDS: NICOTINE 14 MG/24 HOURS TOPICAL PATCH TD SCH (11:21)
[2021-12-10] MEDS: SIMETHICONE 80 MG TAB.CHEW (FP) PO SCH ×2 (11:21→15:30)
== END 2021-12-10 17:05 | disposition home or self-care (01) | DRG 772 ==
LOC: YASAS 19:15 → Y3W 19:17 → Y5N 12-04 19:27
PROVIDERS: ADMIT Allergy & Immunology; ATTEND Allergy & Immunology
PROC: HZ42ZZZ Group Counseling for Substance Abuse Treatment, Cognitive-Behavioral (ICD-10-PCS; principal; 2021-12-02)
DX: F10.20 Alcohol dependence, uncomplicated (principal); F11.20 Opioid dependence, uncomplicated; F14.20 Cocaine dependence, uncomplicated; F17.210 Nicotine dependence, cigarettes, uncomplicated; F41.8 Other specified anxiety disorders; F32.A Depression, unspecified; U07.1 COVID-19; Z21 Asymptomatic human immunodeficiency virus [HIV] infection status; E11.9 Type 2 diabetes mellitus without complications; E78.5 Hyperlipidemia, unspecified; I10 Essential (primary) hypertension; J45.909 Unspecified asthma, uncomplicated; L03.113 Cellulitis of right upper limb; M54.50 Low back pain, unspecified; G89.29 Other chronic pain; Z91.013 Allergy to seafood
CPT/HCPCS: 0013A; 36415; 80053; 85025; 86780; 91301; C9803; U0003; U0005